=== PATIENT | female | born 2000 | race Caucasian/White ===

== ENCOUNTER 2024-07-24 12:58 | Emergency (ER) | payer OTHER, SELFPAY ==
[2024-07-24 13:02] VITALS: BP 105/71
--- NOTE | 2024-07-24 14:30 | ED.GENMED ---
History of Present Illness
General
Chief Complaint: Cough
Time Seen by Provider: 07/24/24 13:19
History of Present Illness
History of Present Illness:
23-year-old female with no reported past medical history presenting for cough for the past week. Patient reports a cough has been productive with intermittent fevers. She went to urgent care 3 days ago, was tested for COVID and flu which was
negative. Notes that she continues to have a productive cough with shortness of breath. Denies any known sick contacts. Denies any chest pain. Denies abdominal pain or GI symptoms. She was prescribed Flonase and Mucinex at urgent care, reports
this is also not helping her symptoms. Denies additional acute medical complaints.
Phy Exam
Physical Exam
Physical Exam:
General: Well-appearing, no clinical signs of dehydration, nontoxic and in no acute distress
HEENT: protecting airway
Neck: appears supple
CV: Normal heart rate, regular rhythm
Resp: No accessory muscle use, no increased work of breathing, rhonchi to the right midlung field
Abd: No distention
Extremities: No deformities, no swelling, no erythema
Neuro: alert, no focal neurologic deficit
: deferred
Rectal: deferred
Psych: Normal affect
Skin: Intact
Course
Orders/Labs/Results
Orders:
Orders
07/24/24 13:08
CXR2 [CR Chest - 2 Views ] Urgent
Comment:
Reason For Exam: cough/SOB
07/24/24 14:30
Doxycycline [Vibramycin] 100 mg PO NOW STA
Vital Signs
Initial and Last Documented VS:
Initial Vital Signs
Temp Pulse Resp BP Pulse Ox
97.7 F 110 18 105/71 96
07/24/24 13:02 07/24/24 13:02 07/24/24 13:02 07/24/24 13:02 07/24/24 13:02
Last Documented Vital Signs
Temp Pulse Resp BP Pulse Ox
97.7 F 110 18 105/71 96
07/24/24 13:02 07/24/24 13:02 07/24/24 13:02 07/24/24 13:02 07/24/24 13:29
MDM/Problems Addressed
MDM/Problems Addressed:
23-year-old female presenting for 1 week of cough. Vital signs are significant for mild tachycardia.
On exam patient is resting comfortably, no acute respiratory distress. Focal rhonchi to the right midlung field. Concerning for possible pneumonia. Plan for x-ray imaging. Patient otherwise hemodynamically stable without concern for systemic
infection.
14:30 - Chest x-ray confirms a right-sided pneumonia. Will decide plan and steroid pack. Otherwise feel stable for discharge. Return precautions discussed and patient verbalized understand
*Critical Care Note
Total Time (30-74mins, 75-104mins- exclusive of procedures): Not Applicable
ED Attending Note
-
Portions of this chart may have been created with voice recognition software.� Occasional wrong word or��sound alike� substitutions may have occurred due to the inherent limitations of voice recognition software.
Discharge Plan
Departure
Referrals:
NONE,* [Family Provider] -
Interventions
Interventions:
*General Assessment Last Done: 07/24/24 13:29
*Neglect/Abuse Screening Last Done: 07/24/24 13:38
*ED COVID-19 Vaccine History Last Done: 07/24/24 13:02
ED- Pulmonary Assessment Last Done: 07/24/24 13:29
Discharge Date and Time
Print Language: NIGERIAN
[2024-07-24] MEDS: VIBRAMYCIN 100 MG PO (15:03)
[2024-07-24 15:10] VITALS: BP 103/67
== END 2024-07-24 15:11 | disposition home or self-care (01) ==
LOC: EMR 12:58
PROVIDERS: EMERGENCY PHYSICIAN Student in an Organized Health Care Education/Training Program
DX: J18.9 Pneumonia, unspecified organism (principal)
CPT/HCPCS: 99283; 71046